=== PATIENT | male | born 1960 | race Caucasian/White ===

== ENCOUNTER → 2018-01-02 | Outpatient (CLI) | payer OTHER, BC | END | disposition home or self-care (01) | LOC: CFH 13:12 | PROVIDERS: ATTEND Nurse Practitioner Family | DX: M19.011 Primary osteoarthritis, right shoulder (principal); M25.462 Effusion, left knee ==

== ENCOUNTER 2020-05-09 13:25 | Inpatient (IN) | payer OTHER ==
[~2020-05-09] VITALS: Ht 165.1 cm; Wt 73.8 kg
[2020-05-09 14:23] LABS: BASOPHILS % (AUTO) 1 % (0-1); EOSINOPHILS % (AUTO) 1 % (1-7); LYMPHOCYTES % (AUTO) 13 % (22-44); MEAN CORPUSCULAR HEMOGLOBIN 31.2 pg (27.5-34.5); MEAN CORPUSCULAR HGB CONC 33.2 g/dL (33.2-36.2); MONOCYTES % (AUTO) 12 % (2-9); NEUTROPHILS % (AUTO) 73 % (42-75); PLATELET COUNT 566 x10^3/uL (130-400); RED BLOOD COUNT 4.33 x10^6/uL (4.38-5.82); RED CELL DISTRIBUTION WIDTH 12.8 % (9.4-14.8)
[2020-05-09 14:27] LABS: ALBUMIN 2.5 g/dL (3.4-5.0); ANION GAP 5 mmol/L (5-15); CALCIUM 8.6 mg/dL (8.5-10.1); CHLORIDE 104 mmol/L (98-107)
[2020-05-09 14:29] LABS: MD NO
[2020-05-09 14:32] LABS: ALANINE AMINOTRANSFERASE 78 U/L (12-78); ALKALINE PHOSPHATASE 145 U/L (45-117); BILIRUBIN,TOTAL 0.3 mg/dL (0.2-1.0); CREATININE 0.71 mg/dL (0.7-1.3); TOTAL PROTEIN 7.3 g/dL (6.4-8.2)
[2020-05-09 15:27] LABS: MICROSCOPIC NOT IND
[2020-05-09 15:39] LABS: HCT (SEDRATE) 40.7 % (39.2-51.8)
[2020-05-09] MEDS ORDERED: DOXYCYCLINE 100MG TABLET PO ONE (16:30)
[2020-05-09] MEDS ORDERED: CEFTRIAXONE PMX 1GM/50ML 50 ML IVPB ONE (16:30)
[2020-05-09] MEDS ORDERED: SODIUM CHLORIDE 0.9% 1,000 ML IV ONE (16:30)
[2020-05-09] MEDS ORDERED: SODIUM CHLORIDE FLUSH 10ML SYR IVF ONE (16:30)
[2020-05-09] MEDS ORDERED: CEFTRIAXONE PMX 1GM/50ML 50 ML ONE (16:39)
[2020-05-09] MEDS ORDERED: DOXYCYCLINE 100MG TABLET ONE (16:39)
[2020-05-09] MEDS ORDERED: ENAL5TAB10 PO (17:04)
[2020-05-09] MEDS ORDERED: VIT1TABL67 PO (17:04)
[2020-05-09] MEDS ORDERED: ATOR-2 PO (17:04)
--- NOTE | 2020-05-09 17:11 | NUR ---
"ITS BEEN A MONTH. QUINTON HAD BODY ACHES, STIFFNESS, AND I HAVE A LUMP IN MY RIGHT SHOULDER AND FEVERS (99-100 AT HOME)."PT IN HOSPITAL BED IN GOWN WITH CONT VETERINARY DENTIST, SPO2, BPQ 30 MIN, SIDE RAILS UP X2, CALL LIGHT IN REACH. WENT OVER PLAN OF CARE FROM ORDER LIST, AGREES TO PLAN
[2020-05-09] MEDS ORDERED: LABETALOL 5MG/ML, 20ML IVPush PRN (17:30)
[2020-05-09] MEDS ORDERED: BUTALB/APAP/CAFFEINE 50MG/325MG/40MG PO PRN (17:30)
[2020-05-09] MEDS ORDERED: ONDANSETRON 2MG/ML, 2ML IVPush PRN (17:30)
[2020-05-09] MEDS ORDERED: PROMETHAZINE 25 MG/ML, 1ML IM PRN (17:30)
[2020-05-09] MEDS ORDERED: morphine SULFATE 10 MG/ML, 1ML IVPush PRN (17:30)
[2020-05-09] MEDS ORDERED: OMNIPAQUE 350 MG/ML, 100ML BOTTLE ONE (17:46)
[2020-05-09] MEDS: SODIUM CHLORIDE 0.9% 1,000 ML IV SCH (17:50)
[2020-05-09] MEDS ORDERED: HEPARIN 5,000 UNITS/ML, 1ML ONE (17:53)
[2020-05-09] MEDS: AMPICILLIN/SULBACTAM 1,500 MG in SODIUM CHLORIDE 0.9% 50 ML IV SCH ×2 (17:56→23:59)
[2020-05-09] MEDS: HEPARIN 5,000 UNITS/ML, 1ML SQ SCH (17:56)
[2020-05-09 18:35] VITALS: BP 108/83
[2020-05-09] MEDS: ENALAPRIL 5MG TABLET PO SCH (21:33)
[2020-05-09] MEDS: ATORVASTATIN 10 MG TABLET PO SCH (21:33)
[2020-05-09] MEDS: ACETAMINOPHEN 325 MG TABLET PO PRN (21:38)
[2020-05-10] MEDS: HEPARIN 5,000 UNITS/ML, 1ML SQ SCH ×3 (01:51→23:19)
[2020-05-10 01:58] VITALS: BP 123/76
[2020-05-10 04:59] LABS: BASOPHILS % (AUTO) 1 % (0-1); EOSINOPHILS % (AUTO) 1 % (1-7); LYMPHOCYTES % (AUTO) 11 % (22-44); MEAN CORPUSCULAR HEMOGLOBIN 31.2 pg (27.5-34.5); MEAN CORPUSCULAR HGB CONC 33.5 g/dL (33.2-36.2); MONOCYTES % (AUTO) 11 % (2-9); NEUTROPHILS % (AUTO) 77 % (42-75); PLATELET COUNT 536 x10^3/uL (130-400); RED BLOOD COUNT 4.01 x10^6/uL (4.38-5.82); RED CELL DISTRIBUTION WIDTH 12.6 % (9.4-14.8)
[2020-05-10 05:09] LABS: MD NO
[2020-05-10 05:11] LABS: ALBUMIN 2.4 g/dL (3.4-5.0); ANION GAP 9 mmol/L (5-15); CALCIUM 8.6 mg/dL (8.5-10.1); CHLORIDE 105 mmol/L (98-107)
[2020-05-10 05:15] LABS: ALANINE AMINOTRANSFERASE 63 U/L (12-78); ALKALINE PHOSPHATASE 126 U/L (45-117); BILIRUBIN,TOTAL 0.3 mg/dL (0.2-1.0); CREATININE 0.65 mg/dL (0.7-1.3); TOTAL PROTEIN 6.5 g/dL (6.4-8.2)
[2020-05-10] MEDS: AMPICILLIN/SULBACTAM 1,500 MG in SODIUM CHLORIDE 0.9% 50 ML IV SCH ×4 (05:59→23:20)
[2020-05-10] MEDS: ACETAMINOPHEN 325 MG TABLET PO PRN ×4 (06:08→21:49)
[2020-05-10 07:18] VITALS: BP 105/67
[2020-05-10] MEDS ORDERED: ENALAPRIL 5MG TABLET PO SCH (09:00)
[2020-05-10] MEDS ORDERED: ATORVASTATIN 10 MG TABLET PO SCH (09:00)
[2020-05-10] MEDS ORDERED: GADOTERATE 7.5 MMOL/15 ML VIAL ONE (11:00)
[2020-05-10] MEDS: SODIUM CHLORIDE 0.9% 1,000 ML IV SCH (11:37)
[2020-05-10 12:24] VITALS: BP 113/76
[2020-05-10] MEDS ORDERED: SODIUM CHLORIDE 0.9% 1,000 ML IV SCH (17:30)
[2020-05-10 19:02] VITALS: BP 117/76
[2020-05-10] MEDS: ENALAPRIL 5MG TABLET PO SCH (20:33)
[2020-05-10] MEDS: ATORVASTATIN 10 MG TABLET PO SCH (20:33)
[2020-05-11] MEDS: AMPICILLIN/SULBACTAM 1,500 MG in SODIUM CHLORIDE 0.9% 50 ML IV SCH ×3 (05:16→17:14)
[2020-05-11] MEDS: ACETAMINOPHEN 325 MG TABLET PO PRN ×3 (05:16→14:33)
[2020-05-11 05:17] VITALS: BP 108/70
[2020-05-11 06:04] LABS: BASOPHILS % (AUTO) 1 % (0-1); EOSINOPHILS % (AUTO) 0 % (1-7); LYMPHOCYTES % (AUTO) 12 % (22-44); MEAN CORPUSCULAR HGB CONC 33.3 g/dL (33.2-36.2); MEAN PLATELET VOLUME 6.9 fL (7.4-10.4); MONOCYTES % (AUTO) 10 % (2-9); NEUTROPHILS % (AUTO) 77 % (42-75); PLATELET COUNT 567 x10^3/uL (130-400); RED BLOOD COUNT 3.86 x10^6/uL (4.38-5.82); RED CELL DISTRIBUTION WIDTH 12.4 % (9.4-14.8)
[2020-05-11 06:21] LABS: ALBUMIN 2.3 g/dL (3.4-5.0); ANION GAP 8 mmol/L (5-15); CALCIUM 8.3 mg/dL (8.5-10.1); CHLORIDE 106 mmol/L (98-107)
[2020-05-11 06:24] LABS: ALANINE AMINOTRANSFERASE 58 U/L (12-78); ALKALINE PHOSPHATASE 122 U/L (45-117); BILIRUBIN,TOTAL 0.4 mg/dL (0.2-1.0); CREATININE 0.59 mg/dL (0.7-1.3); TOTAL PROTEIN 6.5 g/dL (6.4-8.2)
[2020-05-11 06:24] LABS: MD NO
[2020-05-11] MEDS: HEPARIN 5,000 UNITS/ML, 1ML SQ SCH ×2 (07:00→15:38)
[2020-05-11 07:28] VITALS: BP 120/72
[2020-05-11] MEDS ORDERED: CHLORHEXIDINE 15 ML UDC MM ONE (11:30)
[2020-05-11] MEDS ORDERED: CHLORHEXIDINE 15 ML UDC ONE (11:30)
[2020-05-11] MEDS ORDERED: FENTANYL PF 100 MCG/2ML ONE (11:58)
[2020-05-11] MEDS ORDERED: PROMETHAZINE 25 MG SUPP PR PRN (12:30)
[2020-05-11] MEDS ORDERED: ALBUTEROL SULFATE 2.5 MG/3 ML NPPB PRN (12:30)
[2020-05-11] MEDS ORDERED: hydrALAzine 20 MG/ML, 1ML IV PRN (12:30)
[2020-05-11] MEDS ORDERED: OXYcodone 5 MG/5 ML ORAL.SOL UDC PO PRN (12:30)
[2020-05-11] MEDS ORDERED: PROMETHAZINE 25 MG/ML, 1ML IVPush PRN (12:30)
[2020-05-11] MEDS ORDERED: ONDANSETRON 2MG/ML, 2ML IVPush PRN (12:30)
[2020-05-11] MEDS ORDERED: FENTANYL PF 100 MCG/2ML IV PRN (12:30)
[2020-05-11] MEDS ORDERED: LABETALOL 5MG/ML, 20ML IV PRN (12:30)
[2020-05-11] MEDS ORDERED: ACETAMINOPHEN 325 MG TABLET PO PRN (12:30)
[2020-05-11] MEDS ORDERED: GLYCOPYRROLATE 0.2MG/1ML, 5ML ONE (12:49)
[2020-05-11] MEDS ORDERED: PROPOFOL 10 MG/ML, 20ML ONE (12:49)
[2020-05-11] MEDS ORDERED: CEFAZOLIN 1,000 MG ONE (12:49)
[2020-05-11] MEDS ORDERED: ONDANSETRON 2MG/ML, 2ML ONE (12:49)
[2020-05-11] MEDS ORDERED: NEOSTIGMINE 1 MG/ML, 10ML ONE (12:49)
[2020-05-11] MEDS ORDERED: DEXAMETHASONE 4 MG/ML, 1ML ONE (12:49)
[2020-05-11] MEDS ORDERED: LIDOCAINE-MPF 2% ,5ML ONE ×2 (12:49)
[2020-05-11] MEDS ORDERED: SUCCINYLCHOLINE 20 MG/ML, 10ML ONE (12:49)
[2020-05-11 13:56] VITALS: BP 116/71
[2020-05-11] MEDS ORDERED: HYDROcodone/APAP 5/325 TABLET PO PRN (16:30)
[2020-05-11] MEDS ORDERED: CEFD300C37 PO (17:04)
[2020-05-11] MEDS ORDERED: AZIT250T PO (17:04)
== END 2020-05-11 19:01 | disposition home or self-care (01) | DRG 180 ==
LOC: ED 14:22 → EDIP 16:58 → 3WST 18:38 → 4NW 05-11 06:08
PROVIDERS: ADMIT Hospitalist; ATTEND Family Medicine
PROC: 0BJ08ZZ Inspection of Tracheobronchial Tree, Via Natural or Artificial Opening Endoscopic (ICD-10-PCS; principal; 2020-05-11 12:00)
DX: C34.90 Malignant neoplasm of unspecified part of unspecified bronchus or lung (principal); J18.9 Pneumonia, unspecified organism; C79.51 Secondary malignant neoplasm of bone; E87.1 Hypo-osmolality and hyponatremia; J98.11 Atelectasis; C79.31 Secondary malignant neoplasm of brain; E78.5 Hyperlipidemia, unspecified; E88.09 Other disorders of plasma-protein metabolism, not elsewhere classified; I10 Essential (primary) hypertension; D47.3 Essential (hemorrhagic) thrombocythemia; J32.0 Chronic maxillary sinusitis; J34.2 Deviated nasal septum; K76.0 Fatty (change of) liver, not elsewhere classified; Z20.828 Contact with and (suspected) exposure to other viral communicable diseases; Z80.1 Family history of malignant neoplasm of trachea, bronchus and lung; Z87.891 Personal history of nicotine dependence
CPT/HCPCS: 36415; 87806; 96365; 99285; J3490; 31628; 31652; 70486; 70553; 71250; 74177; 80053; 81003; 85025; 85651; 86140; 87040; 87635; 88172; 88173; 88305; 88341; 88342; 93005; G0378; J0690; J0696; J1100; J1644; J2405; J2704; J2710; J3010; Q9967; A9575; G0475; J0295; J0330; J7030

== ENCOUNTER → 2020-06-02 | Outpatient (CLI) | payer OTHER ==
[~2020-06-02] MED LIST: ATOR-2 PO; AZIT250T PO; CEFD300C37 PO; ENAL5TAB10 PO; VIT1TABL67 PO
== END | disposition home or self-care (01) ==
LOC: PETCFH 11:06
PROVIDERS: ATTEND Pathology Hematology
DX: C34.90 Malignant neoplasm of unspecified part of unspecified bronchus or lung (principal); R59.0 Localized enlarged lymph nodes; R91.8 Other nonspecific abnormal finding of lung field
CPT/HCPCS: 78815; A9552

== ENCOUNTER 2020-06-04 12:11 | Inpatient (IN) | payer OTHER ==
[~2020-06-04] VITALS: Ht 165.1 cm; Wt 71.1 kg
[2020-06-04 12:49] LABS: MEAN CORPUSCULAR HGB CONC 32.7 g/dL (33.2-36.2); PLATELET COUNT 670 x10^3/uL (130-400); RED CELL DISTRIBUTION WIDTH 13.8 % (9.4-14.8)
[2020-06-04 12:59] LABS: MD YES
[2020-06-04 13:03] LABS: ANION GAP 8 mmol/L (5-15); CHLORIDE 103 mmol/L (98-107)
[2020-06-04 13:04] LABS: ALANINE AMINOTRANSFERASE 116 U/L (12-78); ALBUMIN 2.3 g/dL (3.4-5.0); ALKALINE PHOSPHATASE 243 U/L (45-117); BILIRUBIN,TOTAL 0.7 mg/dL (0.2-1.0); CREATININE 0.67 mg/dL (0.7-1.3); TOTAL PROTEIN 6.9 g/dL (6.4-8.2)
--- NOTE | 2020-06-04 13:20 | NUR ---
THIS IS A 59 YO MALE COMING IN FOR DIFFUSE ABD PAIN STARTING AT 0300 TODAY. 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 LUMP NOTED TO URQ OF ABDOMEN. DENIES N/V/D/CONSTIPATION. TENDER TO LIGHT PALPATION THROUGHOUT. LAST BM YESTERDAY. PATIENT TAKES 15MG OXYCODONE AT HOME FOR PAIN CONTROL, TOOK IT THIS AM WHEN PAIN STARTED, NO RELIEF SINCE. MONITORING IN PLACE, VSS, NADN AT THIS TIME.
[2020-06-04 13:24] LABS: BAND#(MANUAL) 1.52 x10^3/uL; BANDS%(MANUAL) 5 % (0-7); LYMPH#(MANUAL) 1.52 x10^3/uL (1-3.4); LYMPHS% (MANUAL) 5 % (22-44); METAMYELOCYTES% (MANUAL) 1 % (0-1); MONOS#(MANUAL) 0.61 x10^3/uL (0.3-2.7); MONOS% (MANUAL) 2 % (2-9); SEG#(MANUAL) 26.45 x10^3/uL (1.8-6.8); SEGS% (MANUAL) 87 % (42-75)
[2020-06-04 13:25] LABS: <PLATELET ESTIMATE> INCREASED; <PLT MORPHOLOGY> NORMAL PLT MORPH; <RBC MORPHOLOGY> NORMAL
[2020-06-04] MEDS ORDERED: SODIUM CHLORIDE FLUSH 10ML SYR IVF ONE (14:00)
[2020-06-04] MEDS ORDERED: PIPERACILLIN/TAZO/PMX 3.375GM 50 ML IV ONE (14:00)
[2020-06-04] MEDS ORDERED: HYDROmorphone 2 MG/ML, 1ML IVPush PRN (14:00)
[2020-06-04] MEDS ORDERED: ONDANSETRON 2MG/ML, 2ML IVPush ONE (14:00)
[2020-06-04] MEDS ORDERED: ONDANSETRON 2MG/ML, 2ML ONE ×2 (14:02→17:25)
[2020-06-04] MEDS ORDERED: PIPERACILLIN/TAZO/PMX 3.375GM 50 ML ONE (14:02)
[2020-06-04] MEDS ORDERED: HYDROmorphone 1 MG/ML, 1ML INJ ONE (14:02)
[2020-06-04] MEDS ORDERED: METRONIDAZOLE PMX 500MG/100ML 100 ML ONE (14:02)
[2020-06-04] MEDS ORDERED: OMNIPAQUE 350 MG/ML, 100ML BOTTLE ONE (14:10)
--- NOTE | 2020-06-04 14:22 | NUR ---
PATIENT MEDICATED PER EMAR. PER MD, NO BLOOD CULTURES TO BE DRAWN PRIOR TO ABX ADMIN.
[2020-06-04] MEDS ORDERED: METRONIDAZOLE PMX 500MG/100ML 100 ML IV ONE (14:30)
--- NOTE | 2020-06-04 15:24 | NUR ---
ERP IN ROOM
[2020-06-04 15:26] LABS: MICROSCOPIC NOT IND
[2020-06-04] MEDS ORDERED: CHLORHEXIDINE 15 ML UDC MM STA (15:43)
[2020-06-04] MEDS ORDERED: MIDAZOLAM 1 MG/ML, 2ML ONE (15:45)
[2020-06-04] MEDS ORDERED: FENTANYL PF 250 MCG/5ML ONE (15:46)
--- NOTE | 2020-06-04 15:55 | NUR ---
RAPID COVID SWAB WALKED TO LAB
[2020-06-04] MEDS ORDERED: SODIUM CHLORIDE 0.9% 1,000ML IVBOLUS ONE (16:00)
[2020-06-04] MEDS ORDERED: SODIUM CHLORIDE FLUSH 10ML SYR IVF PRN (16:30)
[2020-06-04] MEDS ORDERED: SUCCINYLCHOLINE 20 MG/ML, 10ML ONE (17:25)
[2020-06-04] MEDS ORDERED: CEFAZOLIN 1,000 MG ONE (17:25)
[2020-06-04] MEDS ORDERED: NEOSTIGMINE 1 MG/ML, 10ML ONE (17:25)
[2020-06-04] MEDS ORDERED: GLYCOPYRROLATE 0.2MG/1ML, 5ML ONE (17:25)
[2020-06-04] MEDS ORDERED: ROCURONIUM 10MG/ML,5ML ONE (17:25)
[2020-06-04] MEDS ORDERED: PROPOFOL 10 MG/ML, 20ML ONE (17:25)
[2020-06-04] MEDS ORDERED: DEXAMETHASONE 4 MG/ML, 1ML ONE (17:25)
[2020-06-04] MEDS ORDERED: FENTANYL PF 100 MCG/2ML ONE (17:51)
[2020-06-04] MEDS: FENTANYL PF 100 MCG/2ML IV PRN ×2 (17:53→18:00)
[2020-06-04] MEDS ORDERED: EPHEDRINE 50 MG/ML, 1ML IM PRN (18:00)
[2020-06-04] MEDS ORDERED: PROMETHAZINE 25 MG/ML, 1ML IVPush PRN (18:00)
[2020-06-04] MEDS ORDERED: OXYcodone 5 MG/5 ML ORAL.SOL UDC PO PRN (18:00)
[2020-06-04] MEDS ORDERED: ONDANSETRON 2MG/ML, 2ML IVPush PRN ×3 (18:00→20:30)
[2020-06-04] MEDS ORDERED: DIAZEPAM 5 MG/ML, 2ML IVPush PRN (18:00)
[2020-06-04] MEDS ORDERED: DIPHENHYDRAMINE 50 MG/ML, 1ML IVPush PRN (18:00)
[2020-06-04] MEDS ORDERED: EPHEDRINE 50 MG/ML, 1ML IVPush PRN (18:00)
[2020-06-04] MEDS ORDERED: MEPERIDINE/PF 25MG/0.5ML IVPush PRN (18:00)
[2020-06-04] MEDS ORDERED: MORPHINE SULFATE 4 MG/ML, 1ML ONE ×2 (18:08→18:22)
[2020-06-04] MEDS: morphine SULFATE 10 MG/ML, 1ML IVPush PRN ×3 (18:10→18:27)
[2020-06-04] MEDS ORDERED: ONDANSETRON ODT 4 MG PO PRN (18:30)
[2020-06-04] MEDS ORDERED: morphine SULFATE 10 MG/ML, 1ML IVPush PRN (18:30)
[2020-06-04] MEDS ORDERED: POLYETHYLENE GLYCOL 17 GM PACKET PO PRN (18:30)
[2020-06-04] MEDS ORDERED: LACTATED RINGERS 1,000 ML IV SCH (18:30)
[2020-06-04] MEDS ORDERED: SENNA/DOCUSATE TABLET PO PRN (18:30)
[2020-06-04] MEDS ORDERED: ACETAMINOPHEN 325 MG TABLET PO PRN (18:30)
[2020-06-04] MEDS ORDERED: morphine SULFATE 10 MG/ML, 1ML IV PRN (19:30)
[2020-06-04] MEDS ORDERED: ONDANSETRON 2MG/ML, 2ML IV PRN ×2 (19:30→21:00)
[2020-06-04] MEDS ORDERED: PIPERACILLIN/TAZO/PMX 3.375GM 50 ML IV SCH (20:00)
[2020-06-04] MEDS ORDERED: METRONIDAZOLE PMX 500MG/100ML 100 ML IVPB SCH ×2 (20:00→20:26)
[2020-06-04] MEDS ORDERED: CEFOTETAN PMX 1GM/50ML 50 ML IVPB SCH ×2 (20:30)
[2020-06-04] MEDS: HYDROmorphone 2 MG/ML, 1ML IVPush PRN ×2 (20:38→22:58)
[2020-06-04 20:40] VITALS: BP 119/71
[2020-06-04] MEDS: POTASSIUM CHLORIDE 20 MEQ in D5%-0.45% NACL 1,000 ML IV SCH (20:47)
[2020-06-04] MEDS: DEXAMETHASONE 4 MG/ML, 1ML IVPush SCH (22:26)
[2020-06-04] MEDS: PIPERACILLIN/TAZO/PMX 3.375GM 50 ML IV SCH (22:26)
[2020-06-05 01:50] VITALS: BP 116/84
[2020-06-05] MEDS: HYDROmorphone 2 MG/ML, 1ML IVPush PRN ×6 (02:34→23:54)
[2020-06-05] MEDS: PIPERACILLIN/TAZO/PMX 3.375GM 50 ML IV SCH ×4 (04:06→23:41)
[2020-06-05] MEDS: POTASSIUM CHLORIDE 20 MEQ in D5%-0.45% NACL 1,000 ML IV SCH ×3 (05:11→21:52)
[2020-06-05] MEDS ORDERED: ENOXAPARIN 40 MG/0.4 ML SQ SCH (06:00)
[2020-06-05 06:05] LABS: ALBUMIN 1.9 g/dL (3.4-5.0); ANION GAP 9 mmol/L (5-15); CHLORIDE 102 mmol/L (98-107)
[2020-06-05 06:07] LABS: MEAN CORPUSCULAR HEMOGLOBIN 30.4 pg (27.5-34.5); MEAN CORPUSCULAR HGB CONC 32.7 g/dL (33.2-36.2); MEAN PLATELET VOLUME 7.3 fL (7.4-10.4); PLATELET COUNT 518 x10^3/uL (130-400); RED BLOOD COUNT 4.42 x10^6/uL (4.38-5.82); RED CELL DISTRIBUTION WIDTH 14.1 % (9.4-14.8)
[2020-06-05 06:14] LABS: ALANINE AMINOTRANSFERASE 78 U/L (12-78); ALKALINE PHOSPHATASE 178 U/L (45-117); BILIRUBIN,TOTAL 1.1 mg/dL (0.2-1.0); CREATININE 0.71 mg/dL (0.7-1.3)
[2020-06-05 07:42] LABS: MD YES
[2020-06-05 07:43] LABS: <PLATELET ESTIMATE> INCREASED; <PLT MORPHOLOGY> NORMAL PLT MORPH; <RBC MORPHOLOGY> NORMAL; BANDS%(MANUAL) 3 % (0-7); LYMPH#(MANUAL) 0.23 x10^3/uL (1-3.4); LYMPHS% (MANUAL) 1 % (22-44); MONOS% (MANUAL) 6 % (2-9); SEG#(MANUAL) 21.06 x10^3/uL (1.8-6.8); SEGS% (MANUAL) 90 % (42-75)
[2020-06-05 07:48] VITALS: BP 129/98
[2020-06-05] MEDS: DEXAMETHASONE 4 MG/ML, 1ML IVPush SCH ×2 (08:51→21:18)
[2020-06-05 12:52] VITALS: BP 123/86
[2020-06-05 18:36] VITALS: BP 131/98
[2020-06-05] MEDS ORDERED: LABETALOL 5MG/ML, 20ML IVPush ONE (18:50)
[2020-06-05 19:31] LABS: CHLORIDE 103 mmol/L (98-107); CREATININE 0.66 mg/dL (0.7-1.3)
[2020-06-05 19:34] LABS: MEAN CORPUSCULAR HGB CONC 32.6 g/dL (33.2-36.2); MEAN PLATELET VOLUME 7.1 fL (7.4-10.4); PLATELET COUNT 465 x10^3/uL (130-400); RED CELL DISTRIBUTION WIDTH 14.2 % (9.4-14.8); TROPONIN I < 0.015 ng/mL (0.000-0.045)
[2020-06-05 19:35] LABS: MD YES
[2020-06-05 19:43] LABS: ANION GAP 8 mmol/L (5-15)
[2020-06-05 20:39] VITALS: BP 110/69
[2020-06-05 20:46] LABS: <RBC MORPHOLOGY> NORMAL; BAND#(MANUAL) 1.47 x10^3/uL; BANDS%(MANUAL) 7 % (0-7); LYMPH#(MANUAL) 1.26 x10^3/uL (1-3.4); LYMPHS% (MANUAL) 6 % (22-44); METAMYELOCYTES# (MANUAL) 0.21 x10^3/uL (0-0); METAMYELOCYTES% (MANUAL) 1 % (0-1); MONOS#(MANUAL) 0.84 x10^3/uL (0.3-2.7); MONOS% (MANUAL) 4 % (2-9); SEG#(MANUAL) 17.22 x10^3/uL (1.8-6.8); SEGS% (MANUAL) 82 % (42-75)
[2020-06-05 20:47] LABS: <PLATELET ESTIMATE> INCREASED; <PLT MORPHOLOGY> NORMAL PLT MORPH
[2020-06-05] MEDS ORDERED: DILTIAZEM 125 MG in SODIUM CHLORIDE 0.9% 100 ML IV SCH (21:00)
[2020-06-05] MEDS ORDERED: DILTIAZEM 5 MG/ML, 5ML IVPush ONE (21:00)
[2020-06-05] MEDS: OXYcodone IR 5MG TABLET PO PRN (21:54)
[2020-06-05] MEDS ORDERED: HEPARIN 25,000 UNITS/250ML PMX 250 ML IV PRN (22:00)
[2020-06-05] MEDS ORDERED: HEPARIN 5,000 UNITS/ML, 1ML IV ONE (22:00)
[2020-06-05] MEDS ORDERED: HEPARIN 5,000 UNITS/ML, 1ML IV PRN (22:00)
[2020-06-05 23:39] VITALS: BP 112/74
[2020-06-06 00:37] VITALS: BP 114/75
[2020-06-06] MEDS ORDERED: VANCOMYCIN PER PHARMACY MC PRN (01:00)
[2020-06-06] MEDS ORDERED: VANCOMYCIN 2,000 MG in SODIUM CHLORIDE 0.9% 500 ML IV ONE (01:30)
[2020-06-06] MEDS ORDERED: PHARMACOKINETIC CONSULTATION MC ONE (01:30)
[2020-06-06] MEDS ORDERED: PHARMACOKINETIC MONITORING MC PRN (01:30)
[2020-06-06 05:10] LABS: MEAN CORPUSCULAR HEMOGLOBIN 30.4 pg (27.5-34.5); MEAN CORPUSCULAR HGB CONC 32.8 g/dL (33.2-36.2); MEAN PLATELET VOLUME 7.3 fL (7.4-10.4); PLATELET COUNT 423 x10^3/uL (130-400); RED BLOOD COUNT 3.95 x10^6/uL (4.38-5.82)
[2020-06-06 05:22] LABS: ALBUMIN 1.7 g/dL (3.4-5.0); ANION GAP 8 mmol/L (5-15); CALCIUM 9.1 mg/dL (8.5-10.1); CHLORIDE 104 mmol/L (98-107)
[2020-06-06 05:25] LABS: ALANINE AMINOTRANSFERASE 61 U/L (12-78); ALKALINE PHOSPHATASE 145 U/L (45-117); BILIRUBIN,TOTAL 0.7 mg/dL (0.2-1.0); CREATININE 0.74 mg/dL (0.7-1.3); TOTAL PROTEIN 6.1 g/dL (6.4-8.2)
[2020-06-06] MEDS: HYDROmorphone 2 MG/ML, 1ML IVPush PRN ×4 (05:31→22:50)
[2020-06-06] MEDS: PIPERACILLIN/TAZO/PMX 3.375GM 50 ML IV SCH ×3 (05:42→17:18)
[2020-06-06 06:14] LABS: MD YES
[2020-06-06 06:15] LABS: <RBC MORPHOLOGY> NORMAL; BAND#(MANUAL) 0.47 x10^3/uL; BANDS%(MANUAL) 2 % (0-7); LYMPH#(MANUAL) 0.47 x10^3/uL (1-3.4); LYMPHS% (MANUAL) 2 % (22-44); METAMYELOCYTES# (MANUAL) 0.23 x10^3/uL (0-0); METAMYELOCYTES% (MANUAL) 1 % (0-1); MONOS% (MANUAL) 6 % (2-9); MYELOCYTES# (MANUAL) 0.47 x10^3/uL (0-0); MYELOCYTES% (MANUAL) 2 % (0-0); SEG#(MANUAL) 20.27 x10^3/uL (1.8-6.8); SEGS% (MANUAL) 87 % (42-75)
[2020-06-06 06:16] LABS: <PLATELET ESTIMATE> INCREASED; <PLT MORPHOLOGY> NORMAL PLT MORPH
[2020-06-06] MEDS ORDERED: AMIODARONE 150 MG in DEXTROSE 5% 100 ML IV ONE (07:00)
[2020-06-06] MEDS: AMIODARONE 450 MG in DEXTROSE 5% 241 ML IV PRN ×2 (07:55→14:46)
[2020-06-06] MEDS: OxyconTIN ER 15 MG TAB.ER PO SCH ×2 (08:00→21:04)
[2020-06-06] MEDS: FILTER 0.22 MICRON FOR AMIODARONE IV PRN (08:08)
[2020-06-06] MEDS ORDERED: OxyconTIN ER 10 MG TAB.ER ONE (08:11)
[2020-06-06] MEDS: DEXAMETHASONE 4 MG/ML, 1ML IVPush SCH ×2 (08:21→21:05)
[2020-06-06] MEDS: POTASSIUM CHLORIDE 20 MEQ in D5%-0.45% NACL 1,000 ML IV SCH ×2 (09:24→17:18)
[2020-06-06 09:37] VITALS: BP 122/79
[2020-06-06 12:55] VITALS: BP 138/52
[2020-06-06] MEDS: OXYcodone IR 5MG TABLET PO PRN (13:00)
[2020-06-06] MEDS: VANCOMYCIN 1,600 MG in SODIUM CHLORIDE 0.9% 250 ML IV SCH (14:13)
[2020-06-06 19:11] VITALS: BP 146/90
[2020-06-06] MEDS ORDERED: DILTIAZEM 125 MG in SODIUM CHLORIDE 0.9% 100 ML IV SCH (21:00)
[2020-06-07 00:34] VITALS: BP 152/79
[2020-06-07] MEDS: PIPERACILLIN/TAZO/PMX 3.375GM 50 ML IV SCH ×4 (00:45→17:57)
[2020-06-07] MEDS: HYDROmorphone 2 MG/ML, 1ML IVPush PRN ×5 (01:53→18:12)
[2020-06-07] MEDS: POTASSIUM CHLORIDE 20 MEQ in D5%-0.45% NACL 1,000 ML IV SCH (04:10)
[2020-06-07 05:39] LABS: MEAN CORPUSCULAR HGB CONC 32.8 g/dL (33.2-36.2); MEAN PLATELET VOLUME 7.4 fL (7.4-10.4); PLATELET COUNT 502 x10^3/uL (130-400); RED BLOOD COUNT 4.12 x10^6/uL (4.38-5.82); RED CELL DISTRIBUTION WIDTH 14.1 % (9.4-14.8)
[2020-06-07 05:42] LABS: CALCIUM 9.6 mg/dL (8.5-10.1); CHLORIDE 102 mmol/L (98-107)
[2020-06-07 05:48] LABS: ANION GAP 8 mmol/L (5-15); CREATININE 0.69 mg/dL (0.7-1.3)
[2020-06-07 05:49] LABS: ALANINE AMINOTRANSFERASE 83 U/L (12-78); ALKALINE PHOSPHATASE 168 U/L (45-117); BILIRUBIN,TOTAL 0.6 mg/dL (0.2-1.0); TOTAL PROTEIN 6.6 g/dL (6.4-8.2)
[2020-06-07 06:12] LABS: MD YES
[2020-06-07 06:13] LABS: BAND#(MANUAL) 0.25 x10^3/uL; BANDS%(MANUAL) 1 % (0-7); LYMPH#(MANUAL) 0.76 x10^3/uL (1-3.4); LYMPHS% (MANUAL) 3 % (22-44); MONOS#(MANUAL) 2.02 x10^3/uL (0.3-2.7); MONOS% (MANUAL) 8 % (2-9); SEG#(MANUAL) 22.26 x10^3/uL (1.8-6.8); SEGS% (MANUAL) 88 % (42-75)
[2020-06-07 06:14] LABS: <PLATELET ESTIMATE> INCREASED; <PLT MORPHOLOGY> NORMAL PLT MORPH; <RBC MORPHOLOGY> NORMAL
[2020-06-07] MEDS ORDERED: OxyconTIN ER 10 MG TAB.ER ONE (08:21)
[2020-06-07] MEDS: OxyconTIN ER 15 MG TAB.ER PO SCH ×2 (08:25→20:14)
[2020-06-07] MEDS: VANCOMYCIN 1,600 MG in SODIUM CHLORIDE 0.9% 250 ML IV SCH (08:30)
[2020-06-07] MEDS: DEXAMETHASONE 4 MG/ML, 1ML IVPush SCH (08:30)
[2020-06-07] MEDS ORDERED: DIGOXIN 0.25 MG/ML, 2ML IVPush ONE (08:30)
[2020-06-07 08:54] VITALS: BP 110/80
[2020-06-07] MEDS: AMIODARONE 450 MG in DEXTROSE 5% 241 ML IV PRN (09:50)
[2020-06-07] MEDS: DILTIAZEM 125 MG in SODIUM CHLORIDE 0.9% 100 ML IV SCH (13:30)
[2020-06-07 15:37] VITALS: BP 116/81
[2020-06-07] MEDS: OXYcodone IR 5MG TABLET PO PRN ×2 (16:38→23:03)
[2020-06-07] MEDS ORDERED: VANCOMYCIN 1,600 MG in SODIUM CHLORIDE 0.9% 250 ML IV SCH (20:00)
[2020-06-07 20:11] VITALS: BP 136/87
[2020-06-07] MEDS: DEXAMETHASONE 4 MG TABLET PO SCH (20:14)
[2020-06-07] MEDS: VANCOMYCIN 1,800 MG in SODIUM CHLORIDE 0.9% 250 ML IV SCH (23:09)
[2020-06-08] MEDS: PIPERACILLIN/TAZO/PMX 3.375GM 50 ML IV SCH ×4 (01:31→20:51)
[2020-06-08] MEDS: HYDROmorphone 2 MG/ML, 1ML IVPush PRN (01:42)
[2020-06-08] MEDS: FILTER 0.22 MICRON FOR AMIODARONE IV PRN (01:45)
[2020-06-08] MEDS: AMIODARONE 450 MG in DEXTROSE 5% 241 ML IV PRN ×2 (01:45→09:35)
[2020-06-08 02:30] VITALS: BP 130/83
[2020-06-08 05:06] LABS: BASOPHILS % (AUTO) 1 % (0-1); EOSINOPHILS % (AUTO) 0 % (1-7); LYMPHOCYTES % (AUTO) 3 % (22-44); MEAN CORPUSCULAR HEMOGLOBIN 29.8 pg (27.5-34.5); MEAN CORPUSCULAR HGB CONC 32.3 g/dL (33.2-36.2); MEAN PLATELET VOLUME 7.7 fL (7.4-10.4); MONOCYTES % (AUTO) 6 % (2-9); NEUTROPHILS % (AUTO) 90 % (42-75); PLATELET COUNT 447 x10^3/uL (130-400); RED BLOOD COUNT 4.12 x10^6/uL (4.38-5.82); RED CELL DISTRIBUTION WIDTH 14.1 % (9.4-14.8)
[2020-06-08 05:18] LABS: CALCIUM 8.9 mg/dL (8.5-10.1); CHLORIDE 99 mmol/L (98-107)
[2020-06-08] MEDS: OXYcodone IR 5MG TABLET PO PRN ×4 (05:18→23:34)
[2020-06-08 05:25] LABS: ALANINE AMINOTRANSFERASE 89 U/L (12-78); ALKALINE PHOSPHATASE 172 U/L (45-117); ANION GAP 7 mmol/L (5-15); BILIRUBIN,TOTAL 0.6 mg/dL (0.2-1.0); TOTAL PROTEIN 6.3 g/dL (6.4-8.2)
[2020-06-08 06:02] LABS: MD SCAN
[2020-06-08 07:21] VITALS: BP 147/87
[2020-06-08] MEDS: DEXAMETHASONE 4 MG TABLET PO SCH ×2 (08:44→20:51)
[2020-06-08] MEDS: OxyconTIN ER 15 MG TAB.ER PO SCH ×2 (09:34→20:00)
[2020-06-08] MEDS: DILTIAZEM 125 MG in SODIUM CHLORIDE 0.9% 100 ML IV SCH (09:34)
[2020-06-08] MEDS: VANCOMYCIN 1,800 MG in SODIUM CHLORIDE 0.9% 250 ML IV SCH ×2 (12:07→23:29)
[2020-06-08] MEDS: AMIODARONE 200 MG TABLET PO SCH ×2 (12:07→20:51)
[2020-06-08 12:46] VITALS: BP 139/78
[2020-06-08] MEDS: DILTIAZEM 30 MG TABLET PO SCH ×2 (15:41→20:51)
[2020-06-08] MEDS ORDERED: OxyconTIN ER 10 MG TAB.ER ONE (20:41)
[2020-06-08 20:47] VITALS: BP 143/87
[2020-06-09 01:35] VITALS: BP 146/85
[2020-06-09] MEDS: DILTIAZEM 30 MG TABLET PO SCH (02:54)
[2020-06-09] MEDS: PIPERACILLIN/TAZO/PMX 3.375GM 50 ML IV SCH ×4 (03:20→20:15)
[2020-06-09] MEDS: OXYcodone IR 5MG TABLET PO PRN ×2 (03:55→17:47)
[2020-06-09 05:40] LABS: MEAN CORPUSCULAR HEMOGLOBIN 29.6 pg (27.5-34.5); MEAN CORPUSCULAR HGB CONC 32.6 g/dL (33.2-36.2); MEAN PLATELET VOLUME 7.8 fL (7.4-10.4); PLATELET COUNT 395 x10^3/uL (130-400); RED BLOOD COUNT 4.12 x10^6/uL (4.38-5.82); RED CELL DISTRIBUTION WIDTH 14.3 % (9.4-14.8)
[2020-06-09 05:57] LABS: ANION GAP 5 mmol/L (5-15); CHLORIDE 102 mmol/L (98-107); CREATININE 0.73 mg/dL (0.7-1.3)
[2020-06-09 06:20] LABS: MD YES
[2020-06-09 06:21] LABS: <PLATELET ESTIMATE> ADEQUATE; <PLT MORPHOLOGY> NORMAL PLT MORPH; <RBC MORPHOLOGY> NORMAL; BAND#(MANUAL) 0.87 x10^3/uL; BANDS%(MANUAL) 3 % (0-7); LYMPH#(MANUAL) 2.02 x10^3/uL (1-3.4); LYMPHS% (MANUAL) 7 % (22-44); MONOS#(MANUAL) 1.16 x10^3/uL (0.3-2.7); MONOS% (MANUAL) 4 % (2-9); MYELOCYTES# (MANUAL) 0.58 x10^3/uL (0-0); MYELOCYTES% (MANUAL) 2 % (0-0); SEG#(MANUAL) 24.28 x10^3/uL (1.8-6.8); SEGS% (MANUAL) 84 % (42-75)
[2020-06-09 07:53] VITALS: BP 136/85
[2020-06-09] MEDS: DEXAMETHASONE 4 MG TABLET PO SCH ×2 (09:01→20:14)
[2020-06-09] MEDS: OxyconTIN ER 15 MG TAB.ER PO SCH ×2 (09:01→20:19)
[2020-06-09] MEDS: AMIODARONE 200 MG TABLET PO SCH ×2 (09:01→20:14)
[2020-06-09] MEDS: DILTIAZEM 120 MG CAP.ER.24H PO SCH (09:49)
[2020-06-09] MEDS: VANCOMYCIN 1,800 MG in SODIUM CHLORIDE 0.9% 250 ML IV SCH ×2 (10:40→23:10)
[2020-06-09] MEDS ORDERED: OMNIPAQUE 350 MG/ML, 100ML BOTTLE ONE (12:12)
[2020-06-09 12:30] VITALS: BP 143/86
[2020-06-09] MEDS: CALCIUM CARBONATE 500 MG TAB.CHEW PO PRN ×2 (14:13→17:45)
[2020-06-09] MEDS ORDERED: ACETAMINOPHEN 325 MG TABLET PO ONE (20:00)
[2020-06-09] MEDS ORDERED: OxyconTIN ER 10 MG TAB.ER ONE (20:07)
[2020-06-09 20:36] VITALS: BP 142/88
[2020-06-10] MEDS: CALCIUM CARBONATE 500 MG TAB.CHEW PO PRN (00:11)
[2020-06-10] MEDS: OXYcodone IR 5MG TABLET PO PRN ×3 (00:11→08:28)
[2020-06-10 01:10] VITALS: BP 145/80
[2020-06-10] MEDS: PIPERACILLIN/TAZO/PMX 3.375GM 50 ML IV SCH ×3 (02:30→15:52)
[2020-06-10 07:13] VITALS: BP 128/76
[2020-06-10] MEDS: OxyconTIN ER 15 MG TAB.ER PO SCH (08:28)
[2020-06-10] MEDS: DEXAMETHASONE 4 MG TABLET PO SCH (08:28)
[2020-06-10] MEDS: AMIODARONE 200 MG TABLET PO SCH (08:29)
[2020-06-10] MEDS: DILTIAZEM 120 MG CAP.ER.24H PO SCH (08:50)
[2020-06-10] MEDS: VANCOMYCIN 1,800 MG in SODIUM CHLORIDE 0.9% 250 ML IV SCH (11:33)
[2020-06-10 13:20] VITALS: BP 152/79
[2020-06-10] MEDS ORDERED: Senna/Docusate PO (14:04)
[2020-06-10] MEDS ORDERED: AMIO400T5 PO (14:04)
[2020-06-10] MEDS ORDERED: OXYC5TAB3 PO (14:04)
[2020-06-10] MEDS ORDERED: OXYC15TA60 PO (14:04)
[2020-06-10] MEDS ORDERED: Diltiazem Cd PO (14:04)
== END 2020-06-10 16:40 | disposition hospice, home (50) | DRG 853 ==
LOC: OR 18:35 → ORIP 18:38 → 4NE 18:44 → 5SO 06-05 20:32 → 4NW 06-09 21:40
PROVIDERS: ADMIT Family Medicine; ATTEND Hospitalist
PROC: 0DB80ZZ Excision of Small Intestine, Open Approach (ICD-10-PCS; principal; 2020-06-04 15:30)
DX: A41.9 Sepsis, unspecified organism (principal); J18.9 Pneumonia, unspecified organism; J96.01 Acute respiratory failure with hypoxia; K63.1 Perforation of intestine (nontraumatic); K65.1 Peritoneal abscess; C34.90 Malignant neoplasm of unspecified part of unspecified bronchus or lung; C78.6 Secondary malignant neoplasm of retroperitoneum and peritoneum; C78.7 Secondary malignant neoplasm of liver and intrahepatic bile duct; C79.31 Secondary malignant neoplasm of brain; C79.71 Secondary malignant neoplasm of right adrenal gland; C79.72 Secondary malignant neoplasm of left adrenal gland; D68.69 Other thrombophilia; C79.89 Secondary malignant neoplasm of other specified sites; J44.0 Chronic obstructive pulmonary disease with (acute) lower respiratory infection; Z66 Do not resuscitate; I48.91 Unspecified atrial fibrillation; D64.9 Anemia, unspecified; E78.5 Hyperlipidemia, unspecified; E88.09 Other disorders of plasma-protein metabolism, not elsewhere classified; Z20.828 Contact with and (suspected) exposure to other viral communicable diseases; G89.4 Chronic pain syndrome; I11.9 Hypertensive heart disease without heart failure; I27.20 Pulmonary hypertension, unspecified; Z79.52 Long term (current) use of systemic steroids; Z87.891 Personal history of nicotine dependence
CPT/HCPCS: 36415; 71045; 74022; 74177; 80048; 80053; 80202; 81003; 83605; 83690; 83735; 84100; 84484; 85025; 87070; 87075; 87205; 87635; 88307; 93005; 93306; 96365; 96375; G0378; J0690; J1100; J1170; J1650; J2250; J2405; J2543; J2704; J2710; J3010; J3370; J3480; J7060; Q9967; J0282; J0330; J1160; J2270; J7030; J7040; J7050